=== PATIENT | female | born 1955 | race Caucasian/White ===

== ENCOUNTER 2016-12-04 12:50 | Inpatient (IN) | payer OTHER ==
[~2016-12-04] VITALS: Ht 157.5 cm; Wt 46.4 kg
[2016-12-04] MEDS ORDERED: SODIUM CHLORIDE 0.9% 1,000 ML IV ONE (14:11)
[2016-12-04] MEDS ORDERED: NITROGLYCERIN SINGLE TAB 0.4 MG SL ONE ×2 (14:19→14:39)
[2016-12-04] MEDS ORDERED: ASPIRIN 81 MG TABLET CHEW ONE (14:20)
[2016-12-04] MEDS: NITROGLYCERIN SINGLE TAB 0.4 MG SL PRN ×2 (14:21→14:39)
[2016-12-04] MEDS ORDERED: SODIUM CHLORIDE 0.9% 1,000ML IVBOLUS ONE (14:30)
[2016-12-04] MEDS ORDERED: MORPHINE SULFATE 4 MG/ML, 1ML IVPush PRN ×2 (14:30→17:00)
[2016-12-04] MEDS ORDERED: ASPIRIN 81 MG TABLET CHEW PO ONE (14:30)
[2016-12-04] MEDS ORDERED: SODIUM CHLORIDE FLUSH 10ML SYR IVF ONE (14:30)
[2016-12-04 14:51] LABS: HEMOGLOBIN 14.3 g/dL (11.7-16.4)
[2016-12-04 15:00] LABS: ASPARTATE AMINO TRANSFERASE 15 U/L (15-37); BLOOD UREA NITROGEN 18 mg/dL (7-18)
[2016-12-04 15:09] LABS: IS PT STATUS REG ER OR PRE ER? YES
[2016-12-04] MEDS ORDERED: MORPHINE SULFATE 4 MG/ML, 1ML ONE (15:16)
[2016-12-04] MEDS ORDERED: SODIUM CHLORIDE FLUSH 10ML SYR IVF PRN (16:30)
[2016-12-04] MEDS ORDERED: MIDAZOLAM 1 MG/ML, 5ML ONE ×2 (16:50→17:19)
[2016-12-04] MEDS ORDERED: BIVALIRUDIN 250 MG ONE (16:51)
[2016-12-04] MEDS ORDERED: FENTANYL PF 100 MCG/2ML ONE ×2 (16:51→17:19)
[2016-12-04] MEDS ORDERED: HEPARIN 1,000 UNITS/ML, 10ML ONE (16:51)
[2016-12-04] MEDS ORDERED: TICAGRELOR 90 MG TABLET ONE (16:51)
[2016-12-04] MEDS ORDERED: LIDOCAINE 2%, 20ML ONE (16:51)
[2016-12-04] MEDS ORDERED: NITROGLYCERIN 5 MG/ML, 10ML ONE (16:55)
[2016-12-04] MEDS ORDERED: ENALAPRILAT 1.25 MG/ML, 2ML IVPush PRN (17:00)
[2016-12-04] MEDS ORDERED: ACETAMINOPHEN 325 MG TABLET PO PRN (17:00)
[2016-12-04] MEDS ORDERED: POTASSIUM CHLORIDE 20 MEQ TAB.ER.PRT PO ONE (17:00)
[2016-12-04] MEDS ORDERED: GUAIFENESIN/DM 200-20MG, 10ML UDC PO PRN (17:00)
[2016-12-04] MEDS ORDERED: DIPHENHYDRAMINE 50 MG/ML, 1ML ONE (17:13)
[2016-12-04] MEDS ORDERED: ONDANSETRON 2MG/ML, 2ML ONE (17:13)
[2016-12-04 17:18] LABS: IS PT STATUS REG ER OR PRE ER? YES
[2016-12-04 18:10] VITALS: BP 111/63
[2016-12-04 20:00] VITALS: BP 133/73
[2016-12-04] MEDS: SODIUM CHLORIDE 0.9% 1,000 ML IV SCH (20:56)
[2016-12-04] MEDS: FAMOTIDINE 20 MG/2 ML IV SCH (20:57)
[2016-12-04] MEDS: OXYcodone IR 5MG TABLET PO PRN (21:29)
[2016-12-04 23:20] LABS: IS PT STATUS REG ER OR PRE ER? NO
[2016-12-05] MEDS: OXYcodone IR 5MG TABLET PO PRN ×2 (01:46→21:25)
[2016-12-05 03:05] VITALS: BP 116/81
[2016-12-05] MEDS: ASPIRIN 81 MG TABLET EC PO SCH (05:17)
[2016-12-05 06:55] LABS: ASPARTATE AMINO TRANSFERASE 316 U/L (15-37); BLOOD UREA NITROGEN 16 mg/dL (7-18)
[2016-12-05 07:19] VITALS: BP 125/81
[2016-12-05] MEDS: LOSARTAN 50MG TABLET PO SCH (07:33)
[2016-12-05] MEDS: FAMOTIDINE 20 MG/2 ML IV SCH ×2 (07:33→21:04)
[2016-12-05] MEDS: ENOXAPARIN 40 MG/0.4 ML SQ SCH (07:33)
[2016-12-05] MEDS: SENNA/DOCUSATE TABLET PO SCH (07:34)
[2016-12-05] MEDS: SODIUM CHLORIDE 0.9% 1,000 ML IV SCH ×2 (07:35→21:04)
[2016-12-05 13:35] VITALS: BP 118/73
[2016-12-05 21:15] VITALS: BP 138/90
[2016-12-06 03:30] VITALS: BP 143/85
[2016-12-06] MEDS: ASPIRIN 81 MG TABLET EC PO SCH (05:28)
[2016-12-06 05:53] LABS: HEMOGLOBIN 13.1 g/dL (11.7-16.4)
[2016-12-06 06:21] LABS: ASPARTATE AMINO TRANSFERASE 258 U/L (15-37); BLOOD UREA NITROGEN 14 mg/dL (7-18)
[2016-12-06 07:09] VITALS: BP 155/97
[2016-12-06] MEDS ORDERED: LOSA1TAB18 PO (08:33)
[2016-12-06] MEDS ORDERED: ACET650S21 PO (08:33)
[2016-12-06] MEDS ORDERED: SENN8.6T4 PO (08:33)
[2016-12-06] MEDS ORDERED: VERA240C2 PO (08:33)
[2016-12-06] MEDS ORDERED: IBUP800T PO (08:33)
[2016-12-06] MEDS: ENOXAPARIN 40 MG/0.4 ML SQ SCH (08:34)
[2016-12-06] MEDS: LOSARTAN 50MG TABLET PO SCH (08:34)
[2016-12-06] MEDS: SENNA/DOCUSATE TABLET PO SCH (08:34)
[2016-12-06] MEDS: FAMOTIDINE 20 MG/2 ML IV SCH (08:34)
[2016-12-06] MEDS ORDERED: METO50TA3 PO (11:35)
[2016-12-06 12:05] LABS: ACETAMINOPHEN < 2 mcg/mL (10-30)
[2016-12-06 12:50] LABS: HEPATITIS C VIRUS ANTIBODY Nonreactive (Nonreactive)
== END 2016-12-06 13:50 | disposition home or self-care (01) | DRG 287 ==
LOC: ED 15:10 → EDIP 16:12 → 5SO 17:50
PROVIDERS: ADMIT Hospitalist; ATTEND Hospitalist
PROC: 4A023N7 Measurement of Cardiac Sampling and Pressure, Left Heart, Percutaneous Approach (ICD-10-PCS; principal; 2016-12-04)
PROC: B2151ZZ Fluoroscopy of Left Heart using Low Osmolar Contrast (ICD-10-PCS; 2016-12-04)
PROC: B2111ZZ Fluoroscopy of Multiple Coronary Arteries using Low Osmolar Contrast (ICD-10-PCS; 2016-12-04)
DX: I20.0 Unstable angina (principal); I16.0 Hypertensive urgency; E78.5 Hyperlipidemia, unspecified; I10 Essential (primary) hypertension; E87.6 Hypokalemia; E78.1 Pure hyperglyceridemia; Z79.899 Other long term (current) drug therapy; Z82.49 Family history of ischemic heart disease and other diseases of the circulatory system; Z83.3 Family history of diabetes mellitus; Z90.710 Acquired absence of both cervix and uterus
CPT/HCPCS: 36415; 71010; 80053; 80061; 80074; 80307; 80329; 83036; 83735; 84439; 84443; 84484; 85025; 85379; 85610; 85730; 86704; 86706; 86708; 86803; 87340; 93005; 93306; 93458; 96361; 96374; C1760; C1894; J0583; J1644; J1650; J2250; J2405; J3010; J3490; G0480; J1200; J7030; Q9967; S0028

== ENCOUNTER 2020-07-05 17:44 | Emergency (ER) | payer MEDICARE, OTHER ==
[~2020-07-05] VITALS: Ht 157.5 cm; Wt 96.3 kg
[~2020-07-05 17:44] MED LIST: ACET650S21 PO; IBUP-1223 PO; LOSA1TAB25 PO; METO50TA6 PO; SENN-190 PO; VERA240C2 PO
[2020-07-05 17:46] VITALS: BP 156/96
--- NOTE | 2020-07-05 17:51 | NUR ---
SPECIAL EDUCATION BUS DRIVER: EKG DONE IN TRIAGE FOR IRREGULAR HEART BEAT. FLUCTUATING BETWEEN 50BPM-70BPM
--- NOTE | 2020-07-05 18:35 | NUR ---
Patient given discharge instructions and they have confirmed that they understand the instructions. Patient ambulatory with steady gait.
== END 2020-07-05 18:37 | disposition home or self-care (01) ==
LOC: ED 18:15
DX: L03.211 Cellulitis of face (principal); H92.02 Otalgia, left ear; M79.89 Other specified soft tissue disorders; I49.3 Ventricular premature depolarization; I10 Essential (primary) hypertension; Z90.49 Acquired absence of other specified parts of digestive tract
CPT/HCPCS: 93005; 99283

== ENCOUNTER 2020-07-25 20:17 | Emergency (ER) | payer MEDICARE, OTHER ==
[~2020-07-25] VITALS: Ht 157.5 cm; Wt 94.8 kg
[2020-07-25] MEDS ORDERED: SODIUM CHLORIDE FLUSH 10ML SYR IVF ONE (20:30)
[2020-07-25 20:55] LABS: BASOPHILS % (AUTO) 1 % (0-1); EOSINOPHILS % (AUTO) 2 % (1-7); LYMPHOCYTES % (AUTO) 31 % (22-44); MEAN CORPUSCULAR HEMOGLOBIN 31.4 pg (27.0-34.8); MEAN CORPUSCULAR HGB CONC 33.8 g/dL (32.4-35.8); MEAN PLATELET VOLUME 7.4 fL (7.4-10.4); MONOCYTES % (AUTO) 7 % (2-9); NEUTROPHILS % (AUTO) 59 % (42-75); PLATELET COUNT 397 x10^3/uL (130-400); RED BLOOD COUNT 4.69 x10^6/uL (3.82-5.3); RED CELL DISTRIBUTION WIDTH 13.5 % (9.6-15.2)
[2020-07-25 21:00] LABS: MD NO
[2020-07-25] MEDS ORDERED: ATOR20TA37 PO (21:03)
[2020-07-25 21:06] LABS: ALANINE AMINOTRANSFERASE 29 U/L (12-78); ALBUMIN 4.1 g/dL (3.4-5.0); ANION GAP 5 mmol/L (5-15); CALCIUM 8.9 mg/dL (8.5-10.1); CHLORIDE 105 mmol/L (98-107); CREATININE 1.17 mg/dL (0.55-1.02)
[2020-07-25 21:10] LABS: ALKALINE PHOSPHATASE 77 U/L (45-117); BILIRUBIN,TOTAL 0.6 mg/dL (0.2-1.0); TOTAL PROTEIN 7.8 g/dL (6.4-8.2); TROPONIN I < 0.015 ng/mL (0.000-0.045)
[2020-07-25] MEDS ORDERED: POTASSIUM CHLORIDE 20 MEQ TAB.ER.PRT ONE (21:23)
[2020-07-25] MEDS ORDERED: LORazepam 0.5MG TABLET ONE (21:23)
[2020-07-25] MEDS ORDERED: LORazepam 0.5MG TABLET PO ONE (21:30)
[2020-07-25] MEDS ORDERED: POTASSIUM CHLORIDE 20 MEQ TAB.ER.PRT PO ONE (21:30)
[2020-07-25 22:13] VITALS: BP 152/78
== END 2020-07-25 22:17 | disposition home or self-care (01) ==
LOC: ED 21:17
DX: R07.89 Other chest pain (principal); R94.31 Abnormal electrocardiogram [ECG] [EKG]; I10 Essential (primary) hypertension; F41.1 Generalized anxiety disorder; Z90.49 Acquired absence of other specified parts of digestive tract
CPT/HCPCS: 36415; 71045; 80053; 84484; 85025; 93005; 99285